=== PATIENT | male | born 1980 | race Caucasian/White ===

== ENCOUNTER 2018-05-14 14:14 | Emergency (ER) | payer SELFPAY ==
[~2018-05-14] VITALS: Ht 177.8 cm; Wt 97.7 kg
[2018-05-14 14:18] VITALS: Ht 177.8 cm; Wt 97.7 kg
[2018-05-14] MEDS ORDERED: ZITHROMAX500 MG PO (15:23)
[2018-05-14 15:51] VITALS: BP 136/074
== END 2018-05-14 15:53 | disposition home or self-care (01) ==
LOC: D.ER 14:14
DX: J02.0 Streptococcal pharyngitis (principal); M79.18 Myalgia, other site